=== PATIENT | female | born 1985 | race Two or more races ===

== ENCOUNTER 2023-12-18 16:37 | Emergency (ER) | payer OTHER ==
[~2023-12-18] VITALS: Ht 162.6 cm; Wt 113.4 kg
[2023-12-18 18:20] LABS: BASOPHILS % (AUTO) 0.3 % (0.0-2.0); EOSINOPHILS # (AUTO) 0.2 K/uL (0.0-0.7); EOSINOPHILS % (AUTO) 1.5 % (0.0-6.0); HEMATOCRIT 40 % (33-45); HEMOGLOBIN 13.3 g/dL (11.5-14.8); LYMPHOCYTES # (AUTO) 3.1 K/uL (0.8-4.8); LYMPHOCYTES % (AUTO) 27.7 % (20.0-44.0); MEAN CORPUSCULAR HEMOGLOBIN 30 PG (26.0-33.0); MEAN CORPUSCULAR HGB CONC 33 g/dl (31.0-36.0); MEAN CORPUSCULAR VOLUME 90 fL (82-100); MONOCYTES # (AUTO) 0.6 K/uL (0.1-1.30); MONOCYTES % (AUTO) 5.2 % (2.0-12.0); NEUTROPHILS # (AUTO) 7.3 K/uL (1.8-8.9); NEUTROPHILS % (AUTO) 65.3 % (43.0-81.0); PLATELET COUNT (AUTO) 270 K/uL (150-450); RED BLOOD CELL COUNT(AUTO) 4.47 MIL/uL (4.0-5.2); RED CELL DISTRIBUTION WIDTH 13.3 % (11.5-15.0); WHITE BLOOD COUNT (AUTO) 11.1 K/uL (4.3-11.0)
[2023-12-18 18:29] LABS: ACETONE, SERUM NEGATIVE (NEGATIVE)
[2023-12-18 18:35] LABS: CALCIUM, SERUM 9.2 mg/dL (8.5-10.1); CREATININE 0.8 mg/dL (0.6-1.3); POTASSIUM 3.7 mmol/L (3.5-5.1)
[2023-12-18 18:44] LABS: PREGNANCY TEST SERUM QUAN 1 mIU/mL (0-6)
[2023-12-18] MEDS ORDERED: METFORMIN 500 MG TABLET PO ONE (19:00)
[2023-12-18] MEDS ORDERED: METFORMIN 500 MG TABLET ONE (19:38)
[2023-12-18 19:53] VITALS: BP 145/88; TEMP 98.2; O2SAT 96
== END 2023-12-18 19:53 ==
LOC: ER 16:37
DX: E11.65 Type 2 diabetes mellitus with hyperglycemia (principal); R10.2 Pelvic and perineal pain
CPT/HCPCS: 36415; 80048-TC; 82010-TC; 84702-TC; 85025-TC